=== PATIENT | female | born 1965 | race African-American/Black ===

== ENCOUNTER 2025-04-02 09:55 | Emergency (ER) | payer MEDICAID, SELFPAY ==
--- NOTE | ~2025-04-02 | CT_ITS ---
CLINICAL HISTORY: Epi, LUQ, LLQ tenderness, H O Crohns R O flare-up CT abdomen and pelvis with IV contrast. COMPARISON: None provided. FINDINGS: Minimal atelectasis along the posterior lower lobes. Normal gallbladder. Liver is mildly enlarged with right lobe measuring 18.5 cm. Normal spleen. Normal pancreas. Normal adrenal glands. Symmetric renal enhancement. No hydronephrosis. Suture material present along the ascending colon. No bowel obstruction. Moderate distal colonic diverticulosis without evidence of diverticulitis. Mild thickening of the mucosa of multiple loops of small bowel within the left hemiabdomen. No mesenteric or retroperitoneal lymphadenopathy. Normal abdominal aorta. Normal appearance of the urinary bladder. No adnexal mass. No acute fracture or suspicious bone lesion. IMPRESSION: 1. Mild thickening of the mucosa of multiple loops of small bowel can be seen with an enteritis. No bowel obstruction. 2. Colonic diverticulosis without evidence of diverticulitis. This document has been electronically signed by: Kuldip Jim MD on 04/02/2025 16:51:58
--- NOTE | 2025-04-02 09:57 | ECG_ITS ---
Test Reason : CHEST PAIN Blood Pressure : */* mmHG Vent. Rate : 85 BPM Atrial Rate : 85 BPM P-R Int : 194 ms QRS Dur : 72 ms QT Int : 402 ms P-R-T Axes : 54 -27 24 degrees QTcB Int : 478 ms Normal sinus rhythm Normal ECG When compared with ECG of 22-Mar-2012 21:54, Vent. rate has increased by 37 bpm QRS axis Shifted left Referred By: Generic ED Physician Electronically Signed By: Robert Cruz
[2025-04-02 10:15] VITALS: BP 110/67; PULSE 70; RESP 16; TEMP 36.7; O2SAT 98
--- OUTSIDE RECORDS SUMMARY | 2025-04-02 10:48 | XMS_ITS | Clinical Summary ---
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 Name Role Phone Unavailable Primary Care Provider Unavailabl e Social History Tobacco Use Types Packs/Day Years Used Date Smoking Tobacco: Never Assessed Comments Unknown Sex and Gender Information Value Date Recorded Sex Assigned at Not on file Legal Sex Female 6:38 PM EST Gender Identity Not on file Sexual Orientation Not on file Plan of Treatment Health Maintenance Due Date Last Done Comments Breast Cancer Screening 1967 DTaP,Tdap,and Td Vaccines (1 - Tdap) 1986 Hepatitis B Vaccines (1 of 3 - 19+ 3-dose series) 1986 Cervical Cancer Screening: P ap Smear 02/07/1988 Pneumococcal Vaccine: 50+ Ye ars (1 of 1 - PCV) 2017 Zoster Vaccines (1 of 2) 2017 Colorectal Cancer Screening: Colonoscopy 06/08/2022 HIV Screening 06/08/2022 Hepatitis C Screening 06/08/2022 Social Influencers of Health Screening 06/08/2022 Depression Screening 07/07/2024 COVID-19 Vaccine (1 - 2023-2 5 season) 2025 Influenza Vaccine (#1) 2025 HIB Vaccines Aged Out No longer eligi ble based on patient's age to complete this topic HPV Vaccines Aged Out No longer eligi ble based on patient's age to complete this topic Hepatitis A Vaccines Aged Out No long er eligible based on patient's age to complete this topic IPV Vaccines Aged Out No longer eligi ble based on patient's age to complete this topic MMR Vaccines Aged Out No longer eligi ble based on patient's age to complete this topic Meningococcal ACWY Vaccine Aged Out N o longer eligible based on patient's age to complete this topic Meningococcal B Vaccine Aged Out No l onger eligible based on patient's age to complete this topic RSV Immunization Patients Un rosalva 20 months Aged Out No longer eligible b ased on patient's age to complete this topic Varicella Vaccines Aged Out No longer eligible based on patient's age to complete this topic
--- OUTSIDE RECORDS SUMMARY | 2025-04-02 10:48 | XMS_ITS | Clinical Summary ---
Author Organization [employer] 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 Name Role Phone Unavailable Primary Care Provider Unavailabl e Encounters Date Type Department Care Team Description 01/25/2025 Population Health Risk Score [facility] ([facility]) Department [address] [place] [address] Provider, Population Health Generic from Last 3 Months Social History Tobacco Use Types Packs/Day Years Used Date Smoking Tobacco: Never Assessed Comments Unknown Sex and Gender Information Value Date Recorded Sex Assigned at Not on file Legal Sex Female 9:21 PM EDT Gender Identity Not on file Sexual Orientation Not on file Plan of Treatment Health Maintenance Due Date Last Done Comments CT Colonography 1967 Colonoscopy 1967 Colorectal Cancer Screening 1967 Depression Screening 1967 FIT DNA/Cologuard 1967 FIT 1967 FOBT 1967 HIV Screening 1967 SDOH Screening 1967 Sigmoidoscopy 1967 Disability Screening 1967 Alcohol/Substance Use Screening 1979 Tobacco Screening 1979 Hepatitis C Screening 1985 DTaP/Tdap/Td Vaccines (1 - Tdap) 1986 Hepatitis B Vaccines (1 of 3 - 19+ 3-dose series) 1986 Pap Smear 02/07/1988 Cervical Cancer Screening 1997 HPV/Cotest 1997 Mammogram 2007 Pneumococcal Vaccine: 50+ Ye ars (1 of 1 - PCV) 2017 Zoster Vaccines (1 of 2) 2017 COVID-19 Vaccine ( - 2023-2 5 season) 2025 Influenza Vaccine (#1) 2025 RSV Patients and Pa tients Aged 60 years or older (1 - 1-dose 75+ series) 2042 HIB Vaccines Aged Out No longer eligi [...] patient's age to complete this topic Meningococcal Vaccine Aged Out No jailene almaz eligible based on patient's age to complete this topic RSV under 20 months Aged Out No longe r eligible based on patient's age to complete this topic Rotavirus Vaccines Aged Out No longer eligible based on patient's age to complete this topic
[2025-04-02 11:25] LABS: Hemoglobin 11.9 g/dl (12.0-16.0); PLT CLUMP 1; SCAN SMEAR FLAG 1
[2025-04-02 11:27] LABS: Hematocrit 33.7 % (37.0-47.0); Imm Gran Abs Auto 0.02 X10*3/uL (0.00-0.03); Imm Gran Pct Auto 0.3 % (0.0-0.4); Lymphocytes Absolute Auto 2.3 X10*3/uL (1.2-4.9); MANUAL DIFF FLAG SCAN; Mean Corpuscular HGB Conc 35.3 g/dl (31.0-35.0); Mean Corpuscular Hemoglobin 29.1 pg (27.0-33.0); Mean Corpuscular Volume 82.4 fL (80.0-98.0); NRBC Abs Auto 0.020 X10*3/uL (0.0-0.012); NRBC Pct Auto 0.3 /100WBC (0.0-0.2); Red Blood Count 4.09 X10*6/uL (4.20-5.50)
[2025-04-02 11:28] LABS: Alanine Aminotransferase 14 U/L (0-31); Albumin Level 4.0 g/dL (3.5-5.0); Alkaline Phosphatase 99 U/L (39-117); Anion Gap 12 (12-20); Aspartate Amino Transferase 23 U/L (5-31); Blood Urea Nitrogen 9 mg/dL (9-16); Calcium 9.1 mg/dL (8.4-10.2); Carbon Dioxide 22 mmol/L (22-29); Chloride 111 mmol/L (96-108); Creatinine Clr Calc Pharmacy 64.4; Estimated Glomerular Filt Rate 59; Lipase 12 U/L (8-78); Potassium 3.8 mmol/L (3.3-5.1); Sodium 141 mmol/L (135-145); Total Protein 6.5 g/dL (6.5-8.0)
[2025-04-02 11:31] LABS: White Blood Count 5.7 X10*3/uL (4.8-10.8)
[2025-04-02 11:40] LABS: Troponin-I High Sensitivity < 2.7 ng/L (<3.5-17.0)
--- NOTE | 2025-04-02 11:42 | ED.ABDPAIN ---
HPI - Abdominal Pain General Chief Complaint: Abdominal Pain Stated Complaint: chest pain Time Seen by Provider: 04/02/25 11:42 Source: patient Mode of arrival: ambulatory Limitations: no limitations History of Present Illness ED Provider: Dr. Shaun Mendoza HPI narrative: 60-year-old female with a history of Crohn's disease requiring partial colectomy 30 years prior, depression who presents emergency department for evaluation of intermittent epigastric and left-sided abdominal pain times 2-3 weeks and 20 lb weight loss over 8 months. Patient states she has been getting intermittent abdominal pain 2 to 3 times a week. She states the pain is a pressure-like pain and is 10/10 at its worse in his currently 10/10 in the emergency department. She states the pain feels similar to her Crohn's disease pain. Patient states she has not had a flare-up in over 30 years. She states she gets occasional diarrhea once or twice a month. She denied fever, chills, chest pain, shortness of breath. She has had occasional nausea and occasional vomiting. She has not noticed any bloody stools but has noted black stools. Related Data Previous Rx's ?Medication ?Instructions ?Recorded morphine 15 mg immediate release 15 mg PO Q6H PRN pain #14 tabs 04/02/25 tablet omeprazole 20 mg capsule,delayed 20 mg PO DAILY 30 days #30 caps 04/02/25 release prednisone 10 mg tablet 10 mg PO DIRECTED #40 tabs 04/02/25 Allergies Allergy/AdvReac Type Severity Reaction Status Date / Time ibuprofen (IBUPROFEN) Allergy Unknown HIVES Verified 04/02/25 10:19 Penicillins (PENICILLINS) Allergy Unknown DIFFICULTY Verified 04/02/25 10:19 BREATHING Review of Systems Review of Systems Yes all other systems are reviewed and are negative [facility] Past Medical History [facility] Narrative: Social history: Patient denies tobacco and alcohol use. She does smoke marijuana multiple times daily. Social History Social History Smoked in Last 30 Days: No Use of substances other than those prescribed or required for medical reasons: No Advance Directives: No Advance Directives Information Provided: No Physical Exam ED Vital Signs: Vital Signs - 24 hr 04/02/25 10:15 04/02/25 12:10 04/02/25 14:00 Temperature 98.1 F 97.8 F 97.4 F Pulse Rate 70 72 57 Respiratory Rate 16 16 16 Blood Pressure 110/67 134/55 L 138/60 Pulse Oximetry 98 99 98 Oxygen Delivery Method Room Air Room Air Room Air 04/02/25 16:04 Temperature 97.4 F Pulse Rate 59 Respiratory Rate 16 Blood Pressure 133/64 Pulse Oximetry 99 Oxygen Delivery Method Room Air BMI result Body Mass Index 30.0 Vital signs were normal Exam: General: Awake, alert in no distress Head: Normocephalic, atraumatic EENT: PERRL, sclera and conjunctiva are normal, mouth with no erythema or exudates Neck: Supple, no adenopathy Lung: breath sounds symmetric, no wheezing, no rales and no rhonchi Chest: symmetric movement, nontender Heart: regular rate and rhythm, normal S1, S2 no murmurs or rubs Abdomen: soft, moderate epigastric tenderness, mild to moderate left upper quadrant tenderness, moderate right lower quadrant tenderness, nondistended, normal bowel sounds Back: no vertebral tenderness, no CVAT Extremities: no deformities, moves all extremities symmetrically, no edema Neuro: Awake, alert, oriented, normal speech, cranial nerves 2-12 intact, moves all extremities symmetrically Psych: Pleasant, cooperative Medical Decision Making Medical Decision Making MDM Narrative: 60-year-old female with a history of Crohn's disease requiring partial colectomy 30 years prior, depression who presents emergency department for evaluation of intermittent epigastric and left-sided abdominal pain times 2-3 weeks and 20 lb weight loss over 8 months. Patient states she has been getting intermittent abdominal pain 2 to 3 times a week. She states the pain is a pressure-like pain and is 10/10 at its worse in his currently 10/10 in the emergency department. She states the pain feels similar to her Crohn's disease pain. Patient states she has not had a flare-up in over 30 years. She states she gets occasional diarrhea once or twice a month. She denied fever, chills, chest pain, shortness of breath. She has had occasional nausea and occasional vomiting. She has not noticed any bloody stools but has noted black stools. Exam revealed epigastric tenderness, left upper and left lower quadrant tenderness. Differential diagnosis: ?Includes but is not limited to gastritis, diverticulitis, Crohn's flare-up, pancreatitis, anemia, electrolyte abnormalities Course: 16:08 My independent interpretation patient's laboratory evaluation as follows: WBC normal 5700. Normocytic anemia with an H&H of 11.9 and 33.7. ESR was normal at 12. Of chloride elevated 110. Troponin below detectable limits. Lipase was normal. LFTs were normal. CRP was normal. Patient was treated with morphine 4 mg IV, Zofran 4 mg IV and normal saline x1 L with improvement of her pain. 17:04 CT of the abdomen pelvis with IV contrast did reveal mild thickening of loops of small bowel, this could possibly be caused by a flare-up of her Crohn's disease however her inflammatory markers were not elevated. I did discuss this with the patient and the patient's . The patient will be started on prednisone 40 mg once a day for 5 days then taper by 1 pill every 2 days. Radiologist also noted borderline enlargement of the patient's liver. I told the patient that I want her to follow up with our school library media program director on-call, Dr. Hamlin for re-evaluation. Patient also had significant epigastric tenderness I am concerned that you may have gastritis. The patient was started on Prilosec 20 mg once a day for 1 month. Patient was advised to take Tylenol for pain and for pain not relieved by Tylenol she was prescribed morphine. She was given printed and verbal instructions and discharged home in the care of her . Differential Diagnosis Differential Diagnoses: The differential diagnosis associated with the presentation includes (See above) Admission/Observation Consideration of admission/observation: Escalation of care including admission/observation considered (Yes) Lab Data MDM Lab Attestation statement: I reviewed the patient's lab results. 04/02/25 11:03 04/02/25 11:03 Labs: Lab Results 04/02/25 04/02/25 04/02/25 Range/Units 11:03 13:09 13:52 WBC 5.7 (4.8-10.8) X10*3/uL RBC 4.09 L (4.20-5.50) X10*6/uL Hgb 11.9 L (12.0-16.0) g/dl Hct 33.7 L (37.0-47.0) % MCV 82.4 (80.0-98.0) fL MCH 29.1 (27.0-33.0) pg MCHC 35.3 H (31.0-35.0) g/dl RDW 14.0 (11.0-16.0) % Plt Count 179 (160-400) X10*3/uL MPV 11.2 (9.4-12.3) fL Immature Gran % (Auto) 0.3 (0.0-0.4) % Neut % (Auto) 51.6 (45-73) % Lymph % (Auto) 39.9 (20-40) % Emanuel % (Auto) 7.0 (2-11) % Eos % (Auto) 0.9 (0-4) % Baso % (Auto) 0.3 (0-2) % Lymph # (Auto) 2.3 (1.2-4.9) X10*3/uL Emanuel # (Auto) 0.4 (0.1-1.2) X10*3/uL Eos # (Auto) 0.1 (0.0-0.4) X10*3/uL Baso # (Auto) 0.0 (0.0-0.2) X10*3/uL Abs Immat Gran (auto) 0.02 (0.00-0.03) X10*3/uL Absolute Neuts (auto) 3.0 (2.0-8.3) x10*3/uL Absolute Nucleated RBC 0.020 H (0.0-0.012) X10*3/uL Nucleated RBC % (auto) 0.3 H (0.0-0.2) /100WBC Smear Tech's Comments VERIFIED ESR 12 (0-20) MM/HR Sodium 141 (135-145) mmol/L Potassium 3.8 (3.3-5.1) mmol/L Chloride 111 H (96-108) mmol/L Carbon Dioxide 22 (22-29) mmol/L Anion Gap 12 (12-20) BUN 9 (9-16) mg/dL Creatinine 0.97 (0.5-1.4) mg/dL Estim Creat Clear Calc 64.4 Estimated GFR 59 Random Glucose 90 (60-115) mg/dL Calcium 9.1 (8.4-10.2) mg/dL Total Bilirubin 0.3 (0.0-1.0) mg/dL AST 23 (5-31) U/L ALT 14 (0-31) U/L Alkaline Phosphatase 99 (39-117) U/L Troponin I High Sens < 2.7 (<3.5-17.0) ng/L C-Reactive Protein 0.14 (< or = 0.50) mg/dL Total Protein 6.5 (6.5-8.0) g/dL Albumin 4.0 (3.5-5.0) g/dL Lipase 12 (8-78) U/L Urine Color Yellow Urine Appearance Clear Urine pH 7.0 (5.0-9.0) Ur Specific [place] 1.015 (1.005-1.025) Urine Protein Negative (Neg-Trace) mg/dL Urine Glucose (UA) Negative (Negative) mg/dL Urine Ketones Negative (Negative) mg/dL Urine Blood Negative (Negative) Urine Nitrite Negative (Negative) Ur Leukocyte Esterase Negative (Negative) Independent Interpretation I performed an independent interpretation of an: EKG Interpretation: My independent interpretation patient's EKG done on 04/02/2025 at 10:01 hours is as follows: Normal sinus rhythm with a rate of 85, normal PA, QRS and QTC interval, no ST segment elevation, no ST segment depression, no significant T-wave abnormalities, no PACs, no PVCs. Compared to EKG dated 03/22/2021 at 21:54 hours, there is no significant change. Radiology Impression Discussion of test interpretation with radiology: I have reviewed the radiologist's reading. Radiologist Impression: CT abdomen and pelvis with IV contrast. COMPARISON: None provided. FINDINGS: Minimal atelectasis along the posterior lower lobes. Normal gallbladder. Liver is mildly enlarged with right lobe measuring 18.5 cm. Normal spleen. Normal pancreas. Normal adrenal glands. Symmetric renal enhancement. No hydronephrosis. Suture material present along the ascending colon. No bowel obstruction. Moderate distal colonic diverticulosis without evidence of diverticulitis. Mild thickening of the mucosa of multiple loops of small bowel within the left hemiabdomen. No mesenteric or retroperitoneal lymphadenopathy. Normal abdominal aorta. Normal appearance of the urinary bladder. No adnexal mass. No acute fracture or suspicious bone lesion. IMPRESSION: 1. Mild thickening of the mucosa of multiple loops of small bowel can be seen with an enteritis. No bowel obstruction. 2. Colonic diverticulosis without evidence of diverticulitis. This document has been electronically signed by: Kuldip Jim MD on 04/02/2025 16:51:58 Independent Historian Clinical information obtained from an independent historian. History obtained from or confirmed by: Spouse Prescription Management I considered prescription management with: Pain Medication (Morphine) and Other (Proton pump inhibitor: Prilosec) Chronic Conditions Patient?s care impacted by: Other (Crohn's disease) Medications Administered Discontinued Medications Generic Name Dose Route Start Last Admin Trade Name Haleigh PRN Reason Stop Dose Admin Sodium Chloride 1,000 mls @ 999 mls/hr 04/02/25 11:59 04/02/25 16:36 Ns IV 04/02/25 12:59 Infused .Q1H1M STA Infusion Iohexol 100 ml 04/02/25 13:26 04/02/25 13:28 Iohexol 350 Mg/Ml 100 Ml Infus..Btl IV 04/02/25 13:27 85 ml ONCE ONE Administration Morphine Sulfate 4 mg 04/02/25 11:59 04/02/25 13:03 Morphine Sulfate 4 Mg/Ml Cartridge IVPUSH 04/02/25 12:00 4 mg ONCE STA Administration Protocol Morphine Sulfate 4 mg 04/02/25 16:26 04/02/25 16:36 Morphine Sulfate 4 Mg/Ml Cartridge IVPUSH 04/02/25 16:27 4 mg ONCE STA Administration Protocol Ondansetron HCl 4 mg 04/02/25 11:59 04/02/25 13:03 Ondansetron Hcl 4 Mg/2 Ml Vial IVPUSH 04/02/25 12:00 4 mg ONCE ONE Administration Discharge Plan Discharge Clinical Impression: Abdominal pain, Crohn's disease Patient Disposition: Home, Self-Care Instructions: Gastritis (ED) Additional Instructions: Your CAT scan reading in his below. The radiologist did mild thickening of wall of your small bowel which could be consistent with Crohn's disease however your inflammatory markers (ESR and CRP were not elevated. Take prednisone 10 mg pills, 4 pills once a day for 7 days then decrease by 1 pill every 2 days until you complete the entire prescription. This should treat the inflammation from Crohn's disease. While you ?are taking prednisone, do not take any NSAIDs (Motrin, Advil, ibuprofen, Aleve, naproxen). The radiologist also noted that your liver was mildly enlarged but your liver tests were normal. I am also concerned that you might have inflammation of your stomach (gastritis) Take Prilosec (omeprazole) 20 mg pills, 1 pill once a day for 1 month. ?This medication shuts off your acid production and lets the inflammation in your stomach and esophagus heal. Take Tylenol (acetaminophen) 2 pills every 6 hours as needed for pain. For pain not relieved by prednisone or Tylenol take morphine 15 mg pills, 1 pill every 6 hours as needed for pain. This medication will make you sleepy, do not drive or work while taking this medication. Morphine is a narcotic medication and can be addicting. If you are concerned about addiction you can ask the pharmacist for less pills or do not get this prescription filled. Follow-up with your doctor in 2 days. Please return to the emergency department if your symptoms get worse or if you develop any symptoms that are concerning to you. I also want you to follow-up with our on-call school library media program director, Dr. Hamlin for evaluation of your slightly enlarged liver and for possible recurrence of your Crohn's disease. Call their office on Friday to try to get a follow up appointment. CT abdomen and pelvis with IV contrast. COMPARISON: None provided. FINDINGS: Minimal atelectasis along the posterior lower lobes. Normal gallbladder. Liver is mildly enlarged with right lobe measuring 18.5 cm. Normal spleen. Normal pancreas. Normal adrenal glands. Symmetric renal enhancement. No hydronephrosis. Suture material present along the ascending colon. No bowel obstruction. Moderate distal colonic diverticulosis without evidence of diverticulitis. Mild thickening of the mucosa of multiple loops of small bowel within the left hemiabdomen. No mesenteric or retroperitoneal lymphadenopathy. Normal abdominal aorta. Normal appearance of the urinary bladder. No adnexal mass. No acute fracture or suspicious bone lesion. IMPRESSION: 1. Mild thickening of the mucosa of multiple loops of small bowel can be seen with an enteritis. No bowel obstruction. 2. Colonic diverticulosis without evidence of diverticulitis. This document has been electronically signed by: Kuldip Jim MD on 04/02/2025 16:51:58 Dictated By: Kuldip Jim MD Prescriptions: New prednisone 10 mg tablet 10 mg PO DIRECTED Qty: 40 0RF Rx Instructions: Day 1-7, 4pills. Day 8-9, 3 pills. Day 10-11, 2 pills. Day 12-13, 1 pill morphine 15 mg tablet 15 mg PO Q6H PRN (Reason: pain) Qty: 14 0RF Rx Instructions: Partial Fill upon patient request. omeprazole 20 mg capsule,delayed release(/EC) 20 mg PO DAILY 30 Days Qty: 30 0RF Referrals: Ngoc Hamlin MD [Physician, Gastroenterology] Referral Note: Abdominal pain similar to Crohn's flare-up, CT Mild thickening of the mucosa of multiple loops of small bowel can be seen with an enteritis. No bowel obstruction. CRP and ESR were not elevated. Also liver is mildly enlarged with normal LFTs. Print Language: Indonesian
[2025-04-02 11:44] LABS: Platelet Count 179 X10*3/uL (160-400)
[2025-04-02 12:10] VITALS: BP 134/55; PULSE 72; RESP 16; TEMP 36.6; O2SAT 99
[2025-04-02] MEDS: iohexoL 350 MG/ML 100 ML INFUS..BTL IV (13:28)
--- NOTE | 2025-04-02 13:30 | PC.NURSE ---
Pt encouraged to keep RUE straight to encourage IV infusion completion. Resting comfortably in bed, care ongoing.
[2025-04-02 13:58] LABS: Appearance Urine Clear; Glucose Urine UA Negative (Negative); PH 7.0 (5.0-9.0); Specific Gravity - Urine 1.015 (1.005-1.025)
[2025-04-02 14:00] VITALS: BP 138/60; PULSE 57; RESP 16; TEMP 36.3; O2SAT 98
[2025-04-02 16:04] VITALS: BP 133/64; PULSE 59; RESP 16; TEMP 36.3; O2SAT 99
[2025-04-02 17:24] VITALS: BP 138/66; PULSE 52; RESP 15; TEMP 36.3; O2SAT 99
== END 2025-04-02 17:34 | disposition home or self-care (01) ==
PROVIDERS: Emergency Provider Emergency Medicine Emergency Medical Services
DX: K50.90 Crohn's disease, unspecified, without complications (principal); R07.89 Other chest pain; R10.2 Pelvic and perineal pain; R11.2 Nausea with vomiting, unspecified; Z79.899 Other long term (current) drug therapy
CPT/HCPCS: 36415; 74177; 80053; 81003; 83690; 84484; 85025; 85652; 86140; 93005; 96361; 96374; 96375; 96376; 99285; J2270; J2405; Q9967

== ENCOUNTER → 2025-04-02 09:57 | Outpatient (BNV) | payer MEDICAID, SELFPAY | PROVIDERS: Emergency Provider Emergency Medicine Emergency Medical Services; Visit Provider Internal Medicine Cardiovascular Disease | DX: R07.9 Chest pain, unspecified (principal) | CPT/HCPCS: 93010 ==

== ENCOUNTER → 2025-04-02 11:59 | Outpatient (BNV) | payer MEDICAID, SELFPAY | PROVIDERS: Emergency Provider Emergency Medicine Emergency Medical Services; Visit Provider Radiology Diagnostic Radiology | DX: K57.30 Diverticulosis of large intestine without perforation or abscess without bleeding (principal) | CPT/HCPCS: 74177 ==

== ENCOUNTER 2025-04-13 15:39 | Emergency (ER) | payer MEDICAID, SELFPAY ==
--- NOTE | ~2025-04-13 | CT_ITS ---
CLINICAL HISTORY: worsening L sided pain CT abdomen and pelvis with contrast Comparison: CT/SR - CT ABDOMEN PELVIS W IV CON - 04/02/25 13:10 EDT Findings: Increased bibasilar diffuse ground-glass opacities compared to 04/02/2025 CT.No focal consolidations. No pleural effusions. Visualized heart is unremarkable. The gallbladder and solid organs are within normal limits. No renal stones. Status post right hemicolectomy. No bowel obstruction, pneumoperitoneum, or pneumatosis. Compared to 04/02/2025 CT, there is diffuse wall thickening of the descending and sigmoid colon, concerning for infectious or inflammatory colitis. Extensive colonic diverticulosis without evidence of diverticulitis. There is slightly more prominent gastroduodenal wall thickening, which can be seen in gastroenteritis. Pelvic contents unremarkable. The bones are intact. IMPRESSION: Findings concerning for infectious or inflammatory colitis involving the descending and sigmoid colon and possible gastroenteritis. Both more prominent compared to 04/02/2025 CT. This document has been electronically signed by: Sameer Ma MD on 04/13/2025 23:08:34
--- NOTE | 2025-04-13 15:41 | ECG_ITS ---
Test Reason : CP Blood Pressure : */* mmHG Vent. Rate : 75 BPM Atrial Rate : 75 BPM P-R Int : 162 ms QRS Dur : 72 ms QT Int : 398 ms P-R-T Axes : 59 -7 19 degrees QTcB Int : 444 ms Normal sinus rhythm Normal ECG When compared with ECG of 02-Apr-2025 10:01, Nonspecific T wave abnormality now evident in Anterior leads Referred By: Generic ED Physician Electronically Signed By: SEGUNDO WOODY MD
[2025-04-13 15:50] VITALS: BP 105/55; PULSE 81; RESP 16; TEMP 37.2; O2SAT 97; BMI 24.6
--- NOTE | 2025-04-13 15:54 | ED.GENADULT ---
HPI - General Adult General Chief complaint: Abdominal Pain Stated complaint: CP Time Seen by Provider: 04/13/25 21:00 History of Present Illness ED Provider: Erica BRIGGS narrative: The patient is a 60-year-old female who reports a history of Crohn's disease. The patient apparently has had a partial colectomy many years ago. The patient states that she has health insurance that does not accepted locally and she has not been seeing doctors for her Crohn's disease for a long time. She has been having left-sided abdominal pain for 2 years that she feels is getting worse. She was in the emergency room 11 days ago on April 02 with similar pain. She was seen here in the emergency room. She had lab testing in his CT scan of the abdomen that was largely unremarkable. She was discharged from the emergency room with a prescription for a prednisone taper and also for morphine sulfate tablets. She was advised to contact the [facility] gastro[facility]ology office for follow up. The patient says that she has been having left-sided pain getting worse over the last 2 years. She reports a history of a partial colectomy decades ago. She says that she did fine until the last 2 years and did not have issues with a Crohn's disease following her surgery. She is not have a regular doctor and has not seen a regular doctor in many years. She says that she has health insurance but that her insurance is not taken by local doctors and therefore he is having trouble finding doctors. When she was seen here 11 days ago she was referred to [facility] oncology but she was not able to get in. The patient indicates that the pain is on her left side, in the left side of her abdomen, and on the left flank. She reports that she has been having black stools. She says that she has been taking Pepto-Bismol. Related Data Previous Rx's ?Medication ?Instructions ?Recorded morphine 15 mg immediate release 15 mg PO Q6H PRN pain #14 tabs 04/02/25 tablet omeprazole 20 mg capsule,delayed 20 mg PO DAILY 30 days #30 caps 04/02/25 release prednisone 10 mg tablet 10 mg PO DIRECTED #40 tabs 04/02/25 acetaminophen 500 mg capsule 1,000 mg (2 x 500 mg) PO Q8H PRN 04/14/25 fever or pain #14 caps ciprofloxacin HCl 500 mg tablet 500 mg PO BID #14 tabs 04/14/25 metronidazole 500 mg tablet 500 mg PO TID 7 days #21 tabs 04/14/25 morphine 15 mg immediate release 15 mg PO Q6H PRN pain #14 tabs 04/14/25 tablet ondansetron 4 mg disintegrating 4 mg PO Q6H PRN nausea and 04/14/25 tablet vomiting #10 tabs prednisone 10 mg tablet 10 mg PO DIRECTED #40 tabs 04/14/25 Allergies Allergy/AdvReac Type Severity Reaction Status Date / Time ibuprofen (IBUPROFEN) Allergy Unknown HIVES Verified 04/13/25 15:53 Penicillins (PENICILLINS) Allergy Unknown DIFFICULTY Verified 04/13/25 15:53 BREATHING Review of Systems Review of Systems: Yes all other systems are reviewed and are negative [facility] Social History Social History Smoked in Last 30 Days: No Use of substances other than those prescribed or required for medical reasons: Yes Substance Use Type: Marijuana Advance Directives: No Advance Directives Information Provided: No Do you have a plan to hurt others: No Plan Physical Exam ED Vital Signs: Vital Signs - 24 hr 04/13/25 15:50 04/13/25 18:12 04/13/25 21:11 Temperature 98.9 F 98.8 F 97.8 F Pulse Rate 81 66 Respiratory Rate 16 16 16 Blood Pressure 105/55 L 150/60 H 111/51 L Pulse Oximetry 97 98 95 Oxygen Delivery Method Room Air Room Air Room Air 04/13/25 22:05 Temperature 97.8 F Pulse Rate 62 Respiratory Rate 16 Blood Pressure 104/52 L Pulse Oximetry 96 Oxygen Delivery Method Room Air BMI result Body Mass Index 24.6 Const Other: The patient is awake and alert and so she is very uncomfortable. Orientation/consciousness: patient oriented x3 HENMT Other: Face is symmetrical, tongue is midline, mucous membranes moist. Eyes Other: Pupils are round equal, conjunctivae are clear, extraocular movements intact Neck Neck: Yes normal visual inspection and Yes full ROM Resp Effort & Inspection: normal respiratory effort Auscultation: clear to auscultation bilaterally Cardio Rate: regular rate Rhythm: regular rhythm Heart sounds: S1 normal heart sound present and S2 normal heart sound present GI Other: There is significant left-sided of the tenderness. Skin Other: The skin is dry and unremarkable Neuro General: patient oriented x3, tone normal, moves all extremities, no focal motor deficits and CN's II-XI intact bilaterally Extrem Other: There is no calf swelling or tenderness. No asymmetry. No peripheral edema. Course Course Course Narrative: This is a rapid medical exam performed by Nan Banks NP: Additional HPI, ROS, PE not included below will be deferred to primary provider. Patient is a 60y/o F with presenting with years of abdominal pain, as well as left upper chest pain. Reports recently having black stool which prompted her to come in. Plan: EKG, labs Medications Administered Discontinued Medications Generic Name Dose Route Start Last Admin Trade Name Haleigh PRN Reason Stop Dose Admin Acetaminophen 975 mg 04/14/25 00:04 04/14/25 00:17 Acetaminophen 325 Mg Tablet PO 04/14/25 00:05 975 mg ONCE ONE Administration Droperidol 1.25 mg 04/13/25 21:09 04/13/25 21:41 Droperidol 5 Mg/2 Ml Vial IVPUSH 04/13/25 21:10 1.25 mg ONCE ONE Administration Sodium Chloride 1,000 mls @ 999 mls/hr 04/13/25 21:15 04/14/25 00:16 Ns IV 04/13/25 22:15 Infused .Q1H1M CHARLES Infusion Iohexol 85 ml 04/13/25 22:22 04/13/25 22:22 Iohexol 350 Mg/Ml 100 Ml Infus..Btl IV 04/13/25 22:23 85 ml ONCE ONE Administration Levofloxacin 500 mg 04/13/25 23:59 04/14/25 00:17 Levofloxacin 500 Mg Tablet PO 04/14/25 00:00 500 mg ONCE ONE Administration Metronidazole 500 mg 04/13/25 23:59 04/14/25 00:17 Metronidazole 500 Mg Tablet PO 04/14/25 00:00 500 mg ONCE ONE Administration Morphine Sulfate 4 mg 04/13/25 21:09 04/13/25 21:41 Morphine Sulfate 4 Mg/Ml Cartridge IVPUSH 04/13/25 21:10 4 mg ONCE ONE Administration Protocol Morphine Sulfate 15 mg 04/14/25 00:04 04/14/25 00:17 Morphine Sulfate Immed Release 15 Mg Tablet PO 04/14/25 00:05 15 mg ONCE ONE Administration Prednisone 40 mg 04/14/25 00:04 04/14/25 00:17 Prednisone 20 Mg Tablet PO 04/14/25 00:05 40 mg ONCE ONE Administration Medical Decision Making Medical Decision Making [facility] Narrative: The patient is a 60-year-old woman who returns to the emergency room after being seen here approximately 11 days ago with a similar complaint. She had presented with abdominal being at her earlier emergency room visit. She had reported that 30 years ago she had had abdominal surgery with a partial colectomy because of Crohn's disease. However the patient has not had any long-term care for Crohn's disease. She tells me that the pain that she has been having is primarily on the left side of her abdomen and it has been present for over a year but worse over the last few weeks. She was seen here 11 days ago and had a CT scan of the abdomen and pelvis that was not terribly remarkable. There was some questionable small-bowel thickening possibly consistent with enteritis. She was started on a prednisone taper and referred to outpatient management. Unfortunate patient has not had primary care doctor in years and has not seen a school counselor in years. This history makes me wonder whether she really has Crohn's disease. In any event she is here again with more less the same complaint and she has been unable to be seen in the outpatient setting. She says that she has an insurance product that is not accepted by many providers in this area. she says that she took the course of prednisone but her pain has returned and is now worse. She also reports that she has been having black stools but she admits to taking a lot of Pepto-Bismol recently. No definite fevers. No vomiting. She seemed fairly tender on the left abdomen and a repeat CT scan was done that shows more definite inflammatory changes in the colon IMPRESSION: Findings concerning for infectious or inflammatory colitis involving the descending and sigmoid colon and possible gastroenteritis. Both more prominent compared to 04/02/2025 CT. the patient was given IV fluids and IV morphine for symptom control. I explained to the patient that on the basis of her CT scan she should probably be on antibiotics as well as steroids. The patient was afebrile in the emergency room. She was not tachycardic. her white blood count was 10.3 with 79% neutrophils. Her CRP was minimally elevated at 0.67. She does not seem septic or toxic. Nevertheless given that she has now returned twice with this abdominal pain and given that she has worsening CT findings, and given that she has no definite plans for follow-up given her lack of established providers, the patient was offered hospitalization. The patient does not wish to be hospitalized. She will therefore be discharged with prescriptions for ciprofloxacin and metronidazole ( she has a penicillin allergy) and she will also be given another taper of prednisone. She is given contact information for Gastroenterology both at this hospital and at [facility]. She was also given contact information for primary care practice is. She should contact her insurance for assistance in finding providers. She should return if worse. Lab Data 04/13/25 16:32 04/13/25 16:32 Labs: Lab Results 04/13/25 04/13/25 Range/Units 16:32 16:33 WBC 10.3 (4.8-10.8) X10*3/uL RBC 4.36 (4.20-5.50) X10*6/uL Hgb 12.5 (12.0-16.0) g/dl Hct 37.3 (37.0-47.0) % MCV 85.6 (80.0-98.0) fL MCH 28.7 (27.0-33.0) pg MCHC 33.5 (31.0-35.0) g/dl RDW 15.6 (11.0-16.0) % Plt Count 249 D (160-400) X10*3/uL MPV 10.0 (9.4-12.3) fL Immature Gran % (Auto) 1.1 H (0.0-0.4) % Neut % (Auto) 78.9 H (45-73) % Lymph % (Auto) 14.3 L (20-40) % [place] % (Auto) 5.4 (2-11) % Eos % (Auto) 0.1 (0-4) % Baso % (Auto) 0.2 (0-2) % Lymph # (Auto) 1.5 (1.2-4.9) X10*3/uL [place] # (Auto) 0.6 (0.1-1.2) X10*3/uL Eos # (Auto) 0.0 (0.0-0.4) X10*3/uL Baso # (Auto) 0.0 (0.0-0.2) X10*3/uL Abs Immat Gran (auto) 0.11 H (0.00-0.03) X10*3/uL Absolute Neuts (auto) 8.2 (2.0-8.3) x10*3/uL Absolute Nucleated RBC 0.000 (0.0-0.012) X10*3/uL Nucleated RBC % (auto) 0.0 (0.0-0.2) /100WBC PT 11.1 (10.9-12.4) SEC INR 1.0 (0.9-1.1) Sodium 142 (135-145) mmol/L Potassium 3.6 (3.3-5.1) mmol/L Chloride 109 H (96-108) mmol/L Carbon Dioxide 25 (22-29) mmol/L Anion Gap 12 (12-20) BUN 14 (9-16) mg/dL Creatinine 1.22 (0.5-1.4) mg/dL Estim Creat Clear Calc 43.4 Estimated GFR 45 Random Glucose 156 H (60-115) mg/dL Calcium 8.8 (8.4-10.2) mg/dL Magnesium 2.0 (1.6-2.6) mg/dL Total Bilirubin 0.2 (0.0-1.0) mg/dL AST 23 (5-31) U/L ALT 45 H (0-31) U/L Alkaline Phosphatase 101 (39-117) U/L Troponin I High Sens < 2.7 (<3.5-17.0) ng/L C-Reactive Protein 0.67 H (< or = 0.50) mg/dL Total Protein 6.7 (6.5-8.0) g/dL Albumin 4.1 (3.5-5.0) g/dL Lipase 12 (8-78) U/L Urine Color Yellow Urine Appearance Clear Urine pH 5.5 (5.0-9.0) Ur Specific [place] 1.015 (1.005-1.025) Urine Protein Negative (Neg-Trace) mg/dL Urine Glucose (UA) Negative (Negative) mg/dL Urine Ketones Negative (Negative) mg/dL Urine Blood Negative (Negative) Urine Nitrite Negative (Negative) Ur Leukocyte Esterase Small (1+) H (Negative) Urine RBC 0-2 (0-2) /HPF Urine WBC 11-20 H (0-5) /HPF Ur Squamous Epith Cells 6-10 (0-2) /HPF Urine Bacteria None Seen (None Seen) Hyaline Casts 3-5 (0-2) /LPF Urine Opiates Screen POSITIVE H (Not Detect) Ur Buprenorphine Scrn Not Detected (Not Detect) ng/mL Ur Oxycodone Screen Not Detected (Not Detect) ng/mL Urine Methadone Screen Not Detected (Not Detect) ng/mL Urine Fentanyl Screen Not Detected (Not Detect) Ur Barbiturates Screen Not Detected (Not Detect) Ur Phencyclidine Scrn Not Detected (Not Detect) Ur Amphetamines Screen Not Detected (Not Detect) U Benzodiazepines Scrn Not Detected (Not Detect) Urine Cocaine Screen Not Detected (Not Detect) U Marijuana (THC) Screen POSITIVE H (Not Detect) Ethyl Alcohol < 10 mg/dL Discharge Plan Discharge Clinical Impression: Colitis Patient Disposition: Home, Self-Care Additional Instructions: Your CAT scan today shows some inflammation of your colon. We call this inflammation colitis. I do not know if this colitis is the result of Crohn's disease or if this is some kind of an infection. You has been started on a course of antibiotics (ciprofloxacin and metronidazole) in case there was an infectious component. Please take the antibiotics as prescribed. Prednisone as an anti-inflammatory medication (a steroid medication). Please take this 2nd course of prednisone. Prescriptions has been sent for acetaminophen and morphine tablets to your pharmacy as well. Please use these as needed for pain. Please try to use the morphine as little as possible. A prescription for the medication ondansetron (also known as Zofran) has been sent to the pharmacy for nausea. Most importantly please continue your efforts to try to get a primary care doctor and also a school counselor. Please contact your insurance company tomorrow to see if they can assist you in finding out which doctor offices take your insurance. You have the contact information for the gastroenterology office here at [facility] and also at [facility]. There is a clinic in [place] called the [facility] that I believe takes a lot of insurances. Please call them as a possible primary care office. Also you has been provided with the contact information for both [facility] and [facility] primary care offices. Please call these as well as needed. Return to the emergency room if significantly worse. Prescriptions: New ciprofloxacin HCl 500 mg tablet 500 mg PO BID Qty: 14 0RF prednisone 10 mg tablet 10 mg PO DIRECTED Qty: 40 0RF Rx Instructions: Take 4 tablets daily for 4 days, then 3 tablets daily for 4 days, then 2 tablets daily for 4 days, then 1 tablet daily for 4 days. metronidazole 500 mg tablet 500 mg PO TID 7 Days Qty: 21 0RF morphine 15 mg tablet 15 mg PO Q6H PRN (Reason: pain) Qty: 14 0RF Rx Instructions: Partial Fill upon patient request. ondansetron 4 mg tablet,disintegrating 4 mg PO Q6H PRN (Reason: nausea and vomiting) Qty: 10 0RF acetaminophen 500 mg capsule 1,000 mg PO Q8H PRN (Reason: fever or pain) Qty: 14 0RF No Action prednisone 10 mg tablet 10 mg PO DIRECTED Qty: 40 0RF Rx Instructions: Day 1-7, 4pills. Day 8-9, 3 pills. Day 10-11, 2 pills. Day 12-13, 1 pill morphine 15 mg tablet 15 mg PO Q6H PRN (Reason: pain) Qty: 14 0RF Rx Instructions: Partial Fill upon patient request. omeprazole 20 mg capsule,delayed release(DR/EC) 20 mg PO DAILY 30 Days Qty: 30 0RF Referrals: [facility] [Provider Group, Family Practice] [facility] [Provider Group] [facility] [Provider Group] [facility] [Provider Group] [facility] [Provider Group, Gastroenterology] Clinical Impression: Colitis [facility] Primary Care, Nik [Provider Group, Internal Medicine] [facility] Primary Care, 10 [Provider Group, Primary Care] [facility] Gastroenterology [Outside] Interventions: ED Discharge Assessment Last Done: 04/14/25 00:23 Discharge Date/Time: 04/14/25 00:23 Print Language: Bulgarian
[2025-04-13 16:39] LABS: MANUAL DIFF FLAG NO
[2025-04-13 16:50] LABS: Appearance Urine Clear; Glucose Urine UA Negative (Negative); PH 5.5 (5.0-9.0); Specific Gravity - Urine 1.015 (1.005-1.025); UMIC TRIGGER UACC YES
[2025-04-13 16:55] LABS: INTERNATIONAL NORM RATIO 1.0 (0.9-1.1); Prothrombin Time 11.1 SEC (10.9-12.4)
[2025-04-13 17:00] LABS: Hematocrit 37.3 % (37.0-47.0); Hemoglobin 12.5 g/dl (12.0-16.0); Imm Gran Abs Auto 0.11 X10*3/uL (0.00-0.03); Imm Gran Pct Auto 1.1 % (0.0-0.4); Lymphocytes Absolute Auto 1.5 X10*3/uL (1.2-4.9); Mean Corpuscular HGB Conc 33.5 g/dl (31.0-35.0); Mean Corpuscular Hemoglobin 28.7 pg (27.0-33.0); Mean Corpuscular Volume 85.6 fL (80.0-98.0); NRBC Abs Auto 0.000 X10*3/uL (0.0-0.012); NRBC Pct Auto 0.0 /100WBC (0.0-0.2); Platelet Count 249 X10*3/uL (160-400); Red Blood Count 4.36 X10*6/uL (4.20-5.50); White Blood Count 10.3 X10*3/uL (4.8-10.8)
[2025-04-13 17:02] LABS: Alanine Aminotransferase 45 U/L (0-31); Albumin Level 4.1 g/dL (3.5-5.0); Alkaline Phosphatase 101 U/L (39-117); Anion Gap 12 (12-20); Aspartate Amino Transferase 23 U/L (5-31); Blood Urea Nitrogen 14 mg/dL (9-16); Calcium 8.8 mg/dL (8.4-10.2); Carbon Dioxide 25 mmol/L (22-29); Chloride 109 mmol/L (96-108); Creatinine Clr Calc Pharmacy 43.4; Estimated Glomerular Filt Rate 45; Lipase 12 U/L (8-78); Magnesium 2.0 mg/dL (1.6-2.6); Potassium 3.6 mmol/L (3.3-5.1); Sodium 142 mmol/L (135-145); Total Protein 6.7 g/dL (6.5-8.0)
[2025-04-13 17:11] LABS: Troponin-I High Sensitivity < 2.7 ng/L (<3.5-17.0)
[2025-04-13 17:29] LABS: UACC Culture Trigger YES
[2025-04-13 18:12] VITALS: BP 150/60; RESP 16; TEMP 37.1; O2SAT 98
[2025-04-13 21:11] VITALS: BP 111/51; PULSE 66; RESP 16; TEMP 36.6; O2SAT 95
[2025-04-13 22:05] VITALS: BP 104/52; PULSE 62; RESP 16; TEMP 36.6; O2SAT 96
[2025-04-13] MEDS: iohexoL 350 MG/ML 100 ML INFUS..BTL 85 ML IV (22:22)
[2025-04-13 22:26] LABS: Cannabinoid Screen Urine POSITIVE (Not Detect)
[2025-04-14 00:15] VITALS: BP 155/69; PULSE 50; RESP 16; TEMP 36.8; O2SAT 98
[2025-04-14] MEDS: Morphine Sulfate Immed Release 15 MG TABLET PO (00:17)
[2025-04-14 00:23] VITALS: BP 155/69; PULSE 50; RESP 16; TEMP 36.8; O2SAT 98
== END 2025-04-14 00:23 | disposition home or self-care (01) ==
PROVIDERS: Registered Nurse Emergency; Emergency Provider Emergency Medicine
DX: K52.9 Noninfective gastroenteritis and colitis, unspecified (principal); R07.9 Chest pain, unspecified; Z90.49 Acquired absence of other specified parts of digestive tract; Z88.0 Allergy status to penicillin; Z88.6 Allergy status to analgesic agent
CPT/HCPCS: 36415; 74177; 80053; 80307; 81001; 81003; 83690; 83735; 84484; 85025; 85610; 86140; 87086; 93005; 96361; 96374; 96375; 99285; J1790; J2270; Q9967

== ENCOUNTER → 2025-04-13 15:41 | Outpatient (BNV) | payer MEDICAID, SELFPAY | PROVIDERS: Visit Provider Internal Medicine Cardiovascular Disease | DX: R07.9 Chest pain, unspecified (principal) | CPT/HCPCS: 93010 ==

== ENCOUNTER → 2025-04-13 22:03 | Outpatient (BNV) | payer MEDICAID, SELFPAY | PROVIDERS: Emergency Provider Emergency Medicine; Visit Provider Student in an Organized Health Care Education/Training Program | DX: R10.9 Unspecified abdominal pain (principal) | CPT/HCPCS: 74177 ==

== ENCOUNTER 2025-04-23 18:30 | Emergency (ER) | payer MEDICAID, SELFPAY ==
--- NOTE | 2025-04-23 | ECG_ITS ---
Test Reason : chest pain Blood Pressure : */* mmHG Vent. Rate : 63 BPM Atrial Rate : 63 BPM P-R Int : 160 ms QRS Dur : 74 ms QT Int : 420 ms P-R-T Axes : 67 -1 45 degrees QTcB Int : 429 ms Normal sinus rhythm Normal ECG When compared with ECG of 13-Apr-2025 15:43, Nonspecific T wave abnormality no longer evident in Anterior leads Referred By: Generic ED Physician Electronically Signed By: Robert Cruz
--- NOTE | ~2025-04-23 | CT_ITS ---
CLINICAL HISTORY: epigastric pain CT abdomen and pelvis with contrast Comparison: CT/REG/SR - CT ABDOMEN PELVIS W IV CON - 04/13/25 22:17 EDT Findings: No acute finding in the lung bases. Large volume of stool throughout the colon. No small bowel obstruction. No findings of appendicitis or diverticulitis. Normal gallbladder, bile ducts, liver, spleen, pancreas, and adrenal glands. Unremarkable kidneys, ureters, and urinary bladder. No free fluid or free air within the abdomen or pelvis. No abdominal aortic aneurysm or dissection. Bones intact. IMPRESSION: Large volume of stool in the colon suggestive of constipation. This document has been electronically signed by: Darrell Harrington MD on 04/24/2025 01:33:08
--- NOTE | ~2025-04-23 | CT_ITS ---
CLINICAL HISTORY: pe rule out CT angiography chest with contrast. 3D Postprocessing. Comparison: CT - CT ANGIO CHEST PE PROTOCOL - 04/23/25 23:59 EDT Findings: Normal heart size. No pericardial effusion. Normal caliber thoracic aorta. No findings of aortic dissection. No threshold enlarged thoracic lymph node by CT size criteria. Normal diameter main pulmonary trunk. No pulmonary artery filling defect. Lungs and pleural spaces clear. No acute finding in the partially visualized upper abdomen. No acute or suspicious bone finding. IMPRESSION: 1. No pulmonary embolism or other acute finding in the chest. This document has been electronically signed by: Darrell Harrington MD on 04/24/2025 01:34:23
[2025-04-23 18:37] VITALS: BP 100/78; PULSE 68; O2SAT 99
[2025-04-23 18:38] VITALS: BP 108/48; PULSE 61; RESP 18; TEMP 37; O2SAT 98; BMI 27.4
[2025-04-23 19:17] LABS: MANUAL DIFF FLAG NO
[2025-04-23 19:20] LABS: Hematocrit 37.0 % (37.0-47.0); Hemoglobin 12.7 g/dl (12.0-16.0); Imm Gran Abs Auto 0.07 X10*3/uL (0.00-0.03); Imm Gran Pct Auto 0.6 % (0.0-0.4); Lymphocytes Absolute Auto 1.0 X10*3/uL (1.2-4.9); Mean Corpuscular HGB Conc 34.3 g/dl (31.0-35.0); Mean Corpuscular Hemoglobin 28.7 pg (27.0-33.0); Mean Corpuscular Volume 83.7 fL (80.0-98.0); NRBC Abs Auto 0.000 X10*3/uL (0.0-0.012); NRBC Pct Auto 0.0 /100WBC (0.0-0.2); Platelet Count 256 X10*3/uL (160-400); Red Blood Count 4.42 X10*6/uL (4.20-5.50); White Blood Count 11.6 X10*3/uL (4.8-10.8)
--- OUTSIDE RECORDS SUMMARY | 2025-04-23 19:27 | XMS_ITS | Clinical Summary ---
Author Organization [facility] Address [address] [place] [address] Care Team Providers Care Rn Pacu Name Role Phone Unavailable Primary Care Provider Unavailabl e Encounters Date Type Department Care Team Description 01/25/2025 Population Health Risk Score [facility] (C3) Department [address] [place] [id number] Provider, Population Health Generic from [...]
[2025-04-23 19:31] LABS: Anion Gap 15 (12-20); Blood Urea Nitrogen 22 mg/dL (9-16); Calcium 8.8 mg/dL (8.4-10.2); Carbon Dioxide 20 mmol/L (22-29); Chloride 107 mmol/L (96-108); Creatinine Clr Calc Pharmacy 50.9; Estimated Glomerular Filt Rate 49; Potassium 4.3 mmol/L (3.3-5.1); Sodium 138 mmol/L (135-145)
[2025-04-23 19:43] LABS: Troponin-I High Sensitivity < 2.7 ng/L (<3.5-17.0)
--- NOTE | 2025-04-23 20:02 | ED.GENADULT ---
HPI - General Adult General Chief complaint: General Medical Stated complaint: intermittent Chest/abd pain Time Seen by Provider: 04/23/25 19:41 Source: patient Mode of arrival: ambulatory Limitations: no limitations History of Present Illness ED Provider: Dr. Marcum HPI narrative: 60-year-old female presented hospital today for epigastric pain. Patient states she does get reflux sensation up into her chest. Patient wakes up with sour taste in her mouth and burning sensation. Patient was recently seen here and diagnosed with colitis. Patient was sent home with ciprofloxacin and Flagyl. However she finished the antibiotic and her pain has not improved. She is complaining of some nausea. Denies any fever. Related Data Previous Rx's ?Medication ?Instructions ?Recorded morphine 15 mg immediate release 15 mg PO Q6H PRN pain #14 tabs 04/02/25 tablet omeprazole 20 mg capsule,delayed 20 mg PO DAILY 30 days #30 caps 04/02/25 release prednisone 10 mg tablet 10 mg PO DIRECTED #40 tabs 04/02/25 acetaminophen 500 mg capsule 1,000 mg (2 x 500 mg) PO Q8H PRN 04/14/25 fever or pain #14 caps ciprofloxacin HCl 500 mg tablet 500 mg PO BID #14 tabs 04/14/25 metronidazole 500 mg tablet 500 mg PO TID 7 days #21 tabs 04/14/25 morphine 15 mg immediate release 15 mg PO Q6H PRN pain #14 tabs 04/14/25 tablet ondansetron 4 mg disintegrating 4 mg PO Q6H PRN nausea and 04/14/25 tablet vomiting #10 tabs prednisone 10 mg tablet 10 mg PO DIRECTED #40 tabs 04/14/25 bisacodyl 10 mg rectal suppository 10 mg KS DAILY PRN constipation 04/24/25 (Dulcolax (bisacodyl)) #12 ea dicyclomine 20 mg tablet 20 mg PO TID #10 tabs 04/24/25 polyethylene glycol 3350 17 17 g PO BID #119 grams 04/24/25 gram/dose oral powder (Miralax) sennosides 8.6 mg capsule (senna) 8.6 mg PO DAILY 10 days #10 caps 04/24/25 sodium phosphates 19 gram-7 118 ml KS DAILY 4 days #532 mL 04/24/25 gram/118 mL enema (Fleet Enema) Allergies Allergy/AdvReac Type Severity Reaction Status Date / Time ibuprofen (IBUPROFEN) Allergy Unknown HIVES Verified 04/23/25 18:38 Penicillins (PENICILLINS) Allergy Unknown DIFFICULTY Verified 04/23/25 18:38 BREATHING Review of Systems Review of Systems: Pertinent review of systems as mentioned in HPI. All other system otherwise negative. [facility] Past Medical History [facility] Narrative: Medical history as mentioned in HPI Social History Social History Alcohol intake: never Smoked in Last 30 Days: No Use of substances other than those prescribed or required for medical reasons: Yes Substance Use Type: Marijuana Advance Directives: No Advance Directives Information Provided: No Do you have a plan to hurt others: No Plan Physical Exam ED Exam Exam: General: Appears to be in pain Head: Normacephalic, atraumatic ENT: oral mucosa moist, neck supple, no tracheal deviation Cardiovascular: regular rate, regular rhythm, no murmurs, rubbing, gallops Respiratory: CTAB, no wheeze, rales, rhonchi Gastrointestinal: Soft, non distended, epigastric tenderness on palpation Neurological: Awake and alert, no facial droop noted Skin: Warm and dry Psychiatric: Appropriate mood and thoughts Vital Signs: Vital Signs - 24 hr 04/23/25 18:38 04/23/25 20:52 04/23/25 23:48 Temperature 98.6 F 98.2 F 98.0 F Pulse Rate 61 57 58 Respiratory Rate 18 12 18 Blood Pressure 108/48 L 104/45 L 147/62 H Pulse Oximetry 98 98 98 Oxygen Delivery Method Room Air Room Air Room Air 04/24/25 01:29 Temperature 98.0 F Pulse Rate 59 Respiratory Rate 16 Blood Pressure 133/56 L Pulse Oximetry 98 Oxygen Delivery Method Room Air BMI result Body Mass Index 27.4 Medications Administered Discontinued Medications Generic Name Dose Route Start Last Admin Trade Name Freq PRN Reason Stop Dose Admin Al Hydroxide/Mg Hydroxide 30 ml 04/23/25 20:12 04/23/25 21:19 Magnesium Hydrox/Alum Hydrox 30 Ml Oral.Susp PO 04/23/25 20:13 30 ml ONCE ONE Administration Famotidine 20 mg 04/23/25 20:11 04/23/25 21:19 Famotidine 20 Mg Tablet PO 04/23/25 20:12 20 mg ONCE ONE Administration Lactated Ringer's 1,000 mls @ 999 mls/hr 04/23/25 20:15 04/23/25 23:30 Lr IV 04/23/25 21:15 Infused .Q1H1M CHARLES Infusion Iohexol 100 ml 04/24/25 00:33 04/24/25 00:35 Iohexol 350 Mg/Ml 100 Ml Infus..Btl IV 04/24/25 00:34 85 ml ONCE ONE Administration Lactulose 20 gm 04/24/25 02:07 04/24/25 02:15 Lactulose 20 Gm/30 Ml Solution PO 04/24/25 02:08 20 gm ONCE ONE Administration Lidocaine HCl 15 ml 04/23/25 20:12 04/23/25 21:19 Lidocaine Hcl Viscous 2 % 15 Ml Solution MUCOUS MEM 04/23/25 20:13 15 ml ONCE ONE Administration Magnesium Citrate 300 ml 04/24/25 01:16 04/24/25 01:27 Magnesium Citrate 300 Ml Solution PO 04/24/25 01:17 300 ml ONCE ONE Administration Morphine Sulfate 4 mg 04/23/25 20:11 04/23/25 21:36 Morphine Sulfate 10 Mg/Ml Cartridge IVPUSH 04/23/25 20:12 4 mg ONCE ONE Administration Protocol Morphine Sulfate 5 mg 04/23/25 23:32 04/23/25 23:44 Morphine Sulfate 10 Mg/Ml Cartridge IVPUSH 04/23/25 23:33 5 mg ONCE ONE Administration Protocol Ondansetron HCl 4 mg 04/23/25 20:11 04/23/25 21:35 Ondansetron Hcl 4 Mg/2 Ml Vial IVPUSH 04/23/25 20:12 4 mg ONCE ONE Administration Polyethylene Glycol 17 gm 04/24/25 02:07 04/24/25 02:15 Polyethylene Glycol 3350 17 Gm Powd.Pack PO 04/24/25 02:08 17 gm ONCE ONE Administration Polyethylene Glycol 17 gm 04/24/25 02:10 04/24/25 02:15 Polyethylene Glycol 3350 17 Gm Powd.Pack PO 04/24/25 02:11 Not Given ONCE ONE Procedures Procedure Narrative Procedure Narrative: Ultrasound guided IV 20 gauge needle placed in right forearm under real time ultrasound guidance. Flushes and draw back well. No complication Medical Decision Making Medical Decision Making MDM Narrative: This is a 60-year-old female history of Crohn's disease presented hospital today for evaluation of abdominal pain recently diagnosed with colitis. We will plan to give patient IV Pepcid IV fluid IV Zofran IV morphine. Once her nausea is controlled with the plan to challenge her with GI cocktail and Maalox. I suspect patient likely has gastritis. Her history is suspicious for gastritis. We will plan to reassess patient after medication. She does have a recent CT imaging report that shows colitis. Patient does have Crohn's disease. Her colitis may be inflammatory in nature. Patient symptoms did not improve therefore a obtain a CT imaging of the chest abdomen and pelvis. She has no signs of PE. She does have signs of severe constipation. Patient is still complaining of abdominal pain at this time. Magnesium citrate, Maalox and lactulose will be given to the patient. Patient will be signed out to oncoming provider pending resolution of abdominal pain in her bowel movement. She denies any symptoms of rectal impaction. 6:11 AM 04/24/2025 (Dr. Alka Potts, D.O.) patient feeling improved after a small bowel movement though she does admit to the continued cramping. With all of the promotility agents she has had since she has been here, I feel that she is having stomach cramping from that. No evidence of infectious process. She appears well. Discussed importance of fiber and fluid intake over the next several days. Given a course of dicyclomine to help with stomach cramping. Discussed return precautions. Discharged in stable condition. Differential Diagnosis Differential Diagnoses: The differential diagnosis associated with the presentation includes Crohn's disease, IBD, gastritis, colitis Lab Data MDM Lab Attestation statement: I reviewed the patient's lab results. 04/23/25 19:09 04/23/25 19:09 Labs: Lab Results 04/23/25 Range/Units 19:09 WBC 11.6 H (4.8-10.8) X10*3/uL RBC 4.42 (4.20-5.50) X10*6/uL Hgb 12.7 (12.0-16.0) g/dl Hct 37.0 (37.0-47.0) % MCV 83.7 (80.0-98.0) fL MCH 28.7 (27.0-33.0) pg MCHC 34.3 (31.0-35.0) g/dl RDW 15.6 (11.0-16.0) % Plt Count 256 (160-400) X10*3/uL MPV 9.8 (9.4-12.3) fL Immature Gran % (Auto) 0.6 H (0.0-0.4) % Neut % (Auto) 85.8 H (45-73) % Lymph % (Auto) 8.7 L (20-40) % [place] % (Auto) 4.8 (2-11) % Eos % (Auto) 0.0 (0-4) % Baso % (Auto) 0.1 (0-2) % Lymph # (Auto) 1.0 L (1.2-4.9) X10*3/uL [place] # (Auto) 0.6 (0.1-1.2) X10*3/uL Eos # (Auto) 0.0 (0.0-0.4) X10*3/uL Baso # (Auto) 0.0 (0.0-0.2) X10*3/uL Abs Immat Gran (auto) 0.07 H (0.00-0.03) X10*3/uL Absolute Neuts (auto) 9.9 H (2.0-8.3) x10*3/uL Absolute Nucleated RBC 0.000 (0.0-0.012) X10*3/uL Nucleated RBC % (auto) 0.0 (0.0-0.2) /100WBC Sodium 138 (135-145) mmol/L Potassium 4.3 (3.3-5.1) mmol/L Chloride 107 (96-108) mmol/L Carbon Dioxide 20 L (22-29) mmol/L Anion Gap 15 (12-20) BUN 22 H (9-16) mg/dL Creatinine 1.13 (0.5-1.4) mg/dL Estim Creat Clear Calc 50.9 Estimated GFR 49 Random Glucose 176 H (60-115) mg/dL Calcium 8.8 (8.4-10.2) mg/dL Troponin I High Sens < 2.7 (<3.5-17.0) ng/L Independent Interpretation I performed an independent interpretation of an: CT Scan Radiology Impression Discussion of test interpretation with radiology: I have reviewed the radiologist's reading. Prescription Management I considered prescription management with: Pain Medication and Other (Stool softeners, laxatives) Chronic Conditions Patient?s care impacted by: Other (Crohn's disease) Discharge Plan Discharge Clinical Impression: Constipation Qualifiers: Constipation type: unspecified constipation type Qualified Code(s): K59.00 - Constipation, unspecified Patient Disposition: Home, Self-Care Instructions: Constipation (ED) Additional Instructions: Constipation Remedy 1 Lb prunes 1 Lb pitless dates 1 Lb raisins 16 teabags Smooth Move tea brewed in 2 cups water 1 Cup brown sugar 1 Cup lemon juice Mix in a newspaper or periodical editor Put in freezer (never completely freezes) Can be used as a spread on crackers, toast, etc. (about 1-2 tablespoons per dose) You need to consume more fiber to help with your bowels. You can try the above recipe. If you start to vomit, have worsening pain despite medications or develop a fever-return to the emergency department immediately. Call 911 with any medical emergency. Prescriptions: New senna 8.6 mg capsule 8.6 mg PO DAILY 10 Days Qty: 10 0RF bisacodyl [Dulcolax (bisacodyl)] 10 mg suppository 10 mg KS DAILY PRN (Reason: constipation) Qty: 12 0RF polyethylene glycol 3350 [Miralax] 17 gram/dose powder 17 g PO BID Qty: 119 0RF Fleet Enema 19-7 gram/118 mL enema 118 ml KS DAILY 4 Days Qty: 532 0RF dicyclomine 20 mg tablet 20 mg PO TID Qty: 10 0RF No Action prednisone 10 mg tablet 10 mg PO DIRECTED Qty: 40 0RF Rx Instructions: Day 1-7, 4pills. Day 8-9, 3 pills. Day 10-11, 2 pills. Day 12-13, 1 pill morphine 15 mg tablet 15 mg PO Q6H PRN (Reason: pain) Qty: 14 0RF Rx Instructions: Partial Fill upon patient request. omeprazole 20 mg capsule,delayed release(DR/EC) 20 mg PO DAILY 30 Days Qty: 30 0RF ciprofloxacin HCl 500 mg tablet 500 mg PO BID Qty: 14 0RF prednisone 10 mg tablet 10 mg PO DIRECTED Qty: 40 0RF Rx Instructions: Take 4 tablets daily for 4 days, then 3 tablets daily for 4 days, then 2 tablets daily for 4 days, then 1 tablet daily for 4 days. metronidazole 500 mg tablet 500 mg PO TID 7 Days Qty: 21 0RF morphine 15 mg tablet 15 mg PO Q6H PRN (Reason: pain) Qty: 14 0RF Rx Instructions: Partial Fill upon patient request. ondansetron 4 mg tablet,disintegrating 4 mg PO Q6H PRN (Reason: nausea and vomiting) Qty: 10 0RF acetaminophen 500 mg capsule 1,000 mg PO Q8H PRN (Reason: fever or pain) Qty: 14 0RF Print Language: Swedish
[2025-04-23 20:52] VITALS: BP 104/45; PULSE 57; RESP 12; TEMP 36.8; O2SAT 98
[2025-04-23] MEDS: Lidocaine HCl Viscous 2 % 15 ML SOLUTION MUCOUS MEM (21:19)
[2025-04-23] MEDS: Magnesium Hydrox/Alum Hydrox 30 ML ORAL.SUSP PO (21:19)
[2025-04-23] MEDS: Lactated Ringers 1,000 ML 999 ML IV (21:37)
[2025-04-23 23:48] VITALS: BP 147/62; PULSE 58; RESP 18; TEMP 36.7; O2SAT 98
[2025-04-24] MEDS: iohexoL 350 MG/ML 100 ML INFUS..BTL IV (00:35)
[2025-04-24 01:29] VITALS: BP 133/56; PULSE 59; RESP 16; TEMP 36.7; O2SAT 98
[2025-04-24 06:18] VITALS: BP 93/49; PULSE 52; TEMP 36.6
[2025-04-24 06:42] VITALS: BP 93/49; PULSE 52; RESP 18; TEMP 36.6
== END 2025-04-24 06:49 | disposition home or self-care (01) ==
PROVIDERS: Student in an Organized Health Care Education/Training Program; Emergency Provider Emergency Medicine
DX: K59.00 Constipation, unspecified (principal); K50.90 Crohn's disease, unspecified, without complications; Z79.899 Other long term (current) drug therapy
CPT/HCPCS: 36415; 71275; 74177; 80048; 84484; 85025; 93005; 96361; 96374; 96375; 96376; 99285; J2270; J2405; J7120; Q9967

== ENCOUNTER → 2025-04-23 18:51 | Outpatient (BNV) | payer MEDICAID, SELFPAY | PROVIDERS: Emergency Provider Emergency Medicine; Visit Provider Internal Medicine Cardiovascular Disease | DX: R07.9 Chest pain, unspecified (principal) | CPT/HCPCS: 93010 ==

== ENCOUNTER → 2025-04-24 00:05 | Outpatient (BNV) | payer MEDICAID, SELFPAY | PROVIDERS: Emergency Provider Student in an Organized Health Care Education/Training Program; Visit Provider Radiology Diagnostic Radiology | DX: R10.13 Epigastric pain (principal); Z03.89 Encounter for observation for other suspected diseases and conditions ruled out | CPT/HCPCS: 71275; 74177 ==

== ENCOUNTER 2025-05-10 12:07 | Emergency (ER) | payer MEDICAID, SELFPAY ==
--- NOTE | ~2025-05-10 | XR_ITS ---
EXAMINATION: XR RIBS, RIGHT CLINICAL INFORMATION: lateral pain COMPARISON: No prior radiograph. Correlation made with CT angiography chest 04/24/2025. TECHNIQUE: PA view of the chest, and 3 views of the right ribs were obtained. FINDINGS: Lungs demonstrate linear opacity in the right base suspicious for discoid atelectasis. The left lung is grossly clear with trace atelectasis in the left base. Subtle blunting of the right costophrenic sulcus, suspicious for a tiny effusion. The cardiomediastinal silhouette and pulmonary vasculature are normal. Osseous structures are unremarkable. Ribs are intact. No fractures or rib lesions are identified. XR/XR ribs RT min 3V w CXR1V IMPRESSION: 1. Linear opacity in the right lower lung, suspicious for linear/discoid atelectasis. Pneumonia is not excluded. Subtle blunting of the right costophrenic sulcus, suspicious for a tiny effusion. 2. No definite rib fracture or focal rib abnormality. Electronically signed by: Tariq Morgan MD 05/10/2025 01:11 PM [facility]
[2025-05-10 12:21] VITALS: BP 110/56; PULSE 77; RESP 20; TEMP 36.6; O2SAT 97; BMI 24.6
--- NOTE | 2025-05-10 12:21 | ED.GENADULT ---
HPI - General Adult General Chief complaint: Back Pain/Injury Stated complaint: R side pain, muscle spasms Time Seen by Provider: 05/10/25 13:34 Source: patient, RN notes reviewed and old records reviewed Mode of arrival: ambulatory Limitations: no limitations History of Present Illness ED Provider: Darren HPI narrative: Patient is a 60-year old female presenting with complaint of right upper back pain and spasming for the past 2 weeks. Worse with cough, movement and palpation. Denies fevers. Took ASA with little relief. Denies any chest pain or palpitations. MD complaint: back pain Related Data Previous Rx's ?Medication ?Instructions ?Recorded morphine 15 mg immediate release 15 mg PO Q6H PRN pain #14 tabs 04/02/25 tablet omeprazole 20 mg capsule,delayed 20 mg PO DAILY 30 days #30 caps 04/02/25 release prednisone 10 mg tablet 10 mg PO DIRECTED #40 tabs 04/02/25 acetaminophen 500 mg capsule 1,000 mg (2 x 500 mg) PO Q8H PRN 04/14/25 fever or pain #14 caps ciprofloxacin HCl 500 mg tablet 500 mg PO BID #14 tabs 04/14/25 metronidazole 500 mg tablet 500 mg PO TID 7 days #21 tabs 04/14/25 morphine 15 mg immediate release 15 mg PO Q6H PRN pain #14 tabs 04/14/25 tablet ondansetron 4 mg disintegrating 4 mg PO Q6H PRN nausea and 04/14/25 tablet vomiting #10 tabs prednisone 10 mg tablet 10 mg PO DIRECTED #40 tabs 04/14/25 bisacodyl 10 mg rectal suppository 10 mg NC DAILY PRN constipation 04/24/25 (Dulcolax (bisacodyl)) #12 ea dicyclomine 20 mg tablet 20 mg PO TID #10 tabs 04/24/25 polyethylene glycol 3350 17 17 g PO BID #119 grams 04/24/25 gram/dose oral powder (Miralax) sennosides 8.6 mg capsule (senna) 8.6 mg PO DAILY 10 days #10 caps 04/24/25 sodium phosphates 19 gram-7 118 ml NC DAILY 4 days #532 mL 04/24/25 gram/118 mL enema (Fleet Enema) cyclobenzaprine 10 mg tablet 10 mg PO TID PRN muscle spasm #10 05/10/25 tabs doxycycline hyclate 100 mg tablet 100 mg PO BID #10 tabs 05/10/25 Allergies Allergy/AdvReac Type Severity Reaction Status Date / Time ibuprofen (IBUPROFEN) Allergy Unknown HIVES Verified 05/10/25 12:24 Penicillins (PENICILLINS) Allergy Unknown DIFFICULTY Verified 05/10/25 12:24 BREATHING Review of Systems Review of Systems: As per HPI Yes all other systems are reviewed and are negative Constitutional: Constitutional: Reports as per HPI [facility] Social History Social History Alcohol intake: never Substance Use Type: Marijuana Physical Exam ED Vital Signs: Vital Signs - 24 hr 05/10/25 12:21 Temperature 97.9 F Pulse Rate 77 Respiratory Rate 20 Blood Pressure 110/56 L Pulse Oximetry 97 Oxygen Delivery Method Room Air BMI result Body Mass Index 24.6 Vital signs have been reviewed and appear to be correct. Blood pressure normal. Heart rate normal. Respiratory rate normal. Temperature normal. Oxygen saturation normal. Const General: cooperative, healthy appearing and no acute distress Orientation/consciousness: oriented to person, oriented to place, oriented to time and patient oriented x3 Limitations: no limitations HENKS Head: Yes normocephalic and Yes atraumatic Ears: external ears normal General nose exam: Normal external nose present Face and sinus: Yes face symmetric Mouth: oropharynx normal and moist mucous membranes Throat: Yes uvula midline Eyes Pupils: Equal, round and reactive pupils present Neck Neck: Yes normal visual inspection and Yes supple Resp Effort & Inspection: normal respiratory effort and able to speak in complete sentences Auscultation: clear to auscultation bilaterally Cardio Rate: regular rate Rhythm: regular rhythm Heart sounds: S1 normal heart sound present and S2 normal heart sound present GI Palpation (GI): Soft to palpation and nontender Auscultation: normoactive bowel sounds General: Yes no CVA tenderness Back/Spine/Pelvis Back: no CVA tenderness Thoracic/Lumbar Spine: paraspinal muscle tenderness on the right in the mid thoracic Skin General skin exam: elasticity normal and turgor normal Neuro General: oriented to person, oriented to place, oriented to time, patient oriented x3, moves all extremities, no focal motor deficits and CN's II-XI intact bilaterally Cranial nerves: Yes Equal, round and reactive pupils present Cognition (Neuro): normal cognition Extrem General: Yes full ROM, Yes no pedal edema and Yes no calf tenderness Psych Mental Status: mental status grossly normal Affect: normal affect Thought process: Normal thought process present Course Course Course Narrative: This is a rapid medical exam performed by Nan Banks NP: Additional HPI, ROS, PE not included below will be deferred to primary provider. Patient is a 60-year old female presenting with complaint of right upper back pain and spasming for the past 2 weeks. Worse with cough, movement and palpation. Denies fevers. Took ASA with little relief. Plan: xray Medical Decision Making Medical Decision Making [facility] Narrative: Patient is a 60-year old female presenting with complaint of right upper back pain and spasming for the past 2 weeks. On exam patient is awake, A+Ox3, VS WNL, afebrile, normal neurological exam without focal deficits, physical exam findings as above. Given reported symptoms and physical exam findings, initial differential includes but is not limited to muscle strain, rib contusion or fracture, bronchitis or pneumonia. X-ray right ribs and chest notable for right lower lobe opacity. My interpretation is in agreement with the radiologist's interpretation. Will treat with course of doxycycline. Will send prescription for flexeril as well for spasms. Advised follow up with PCP for repeat CXR to ensure resolution of pna. Return precautions discussed. Patient verbalized understanding of and agreement with plan. Differential Diagnosis Differential Diagnoses: The differential diagnosis associated with the presentation includes as per [facility] Admission/Observation Consideration of admission/observation: Escalation of care including admission/observation considered Patient would have been admitted to the hospital and transferred to appropriate facility had their clinical presentation warranted hospital admission. Independent Interpretation I performed an independent interpretation of an: Plain X-Ray Interpretation: Right lower lobe opacity on chest x-ray. Radiology Impression Discussion of test interpretation with radiology: I have reviewed the radiologist's reading. Radiologist Impression: XR/XR ribs RT min 3V w CXR1V IMPRESSION: 1. Linear opacity in the right lower lung, suspicious for linear/discoid atelectasis. Pneumonia is not excluded. Subtle blunting of the right costophrenic sulcus, suspicious for a tiny effusion. 2. No definite rib fracture or focal rib abnormality. External Record Review External record reviewed: Inpatient record, Office record and Outpatient record Prescription Management I considered prescription management with: Antibiotic and Other Discharge Plan Discharge Clinical Impression: Right lower lobe pneumonia Patient Disposition: Home, Self-Care Instructions: Community Acquired Pneumonia (DC) Additional Instructions: You were evaluated in the emergency department today for cough and shortness of breath. Your chest x-ray shows evidence of pneumonia. You are being treated with antibiotics, please complete the full course as prescribed. You have also been prescribed cyclobenzaprine which is a muscle relaxer. This medication can cause drowsiness, do not take in combination with alcohol. Please call your primary care provider within the next 2-3 days to schedule a follow-up appointment. You will need a repeat chest x-ray to confirm resolution of your pneumonia. Return to the emergency department if you develop worsening shortness of breath, chest pain, palpitations, fever 100.4? F or greater, or any other concerning symptoms. Prescriptions: New doxycycline hyclate 100 mg tablet 100 mg PO BID Qty: 10 0RF cyclobenzaprine 10 mg tablet 10 mg PO TID PRN (Reason: muscle spasm) Qty: 10 0RF No Action senna 8.6 mg capsule 8.6 mg PO DAILY 10 Days Qty: 10 0RF bisacodyl [Dulcolax (bisacodyl)] 10 mg suppository 10 mg NC DAILY PRN (Reason: constipation) Qty: 12 0RF polyethylene glycol 3350 [Miralax] 17 gram/dose powder 17 g PO BID Qty: 119 0RF Fleet Enema 19-7 gram/118 mL enema 118 ml NC DAILY 4 Days Qty: 532 0RF dicyclomine 20 mg tablet 20 mg PO TID Qty: 10 0RF prednisone 10 mg tablet 10 mg PO DIRECTED Qty: 40 0RF Rx Instructions: Day 1-7, 4pills. Day 8-9, 3 pills. Day 10-11, 2 pills. Day 12-13, 1 pill morphine 15 mg tablet 15 mg PO Q6H PRN (Reason: pain) Qty: 14 0RF Rx Instructions: Partial Fill upon patient request. omeprazole 20 mg capsule,delayed release(DR/EC) 20 mg PO DAILY 30 Days Qty: 30 0RF ciprofloxacin HCl 500 mg tablet 500 mg PO BID Qty: 14 0RF prednisone 10 mg tablet 10 mg PO DIRECTED Qty: 40 0RF Rx Instructions: Take 4 tablets daily for 4 days, then 3 tablets daily for 4 days, then 2 tablets daily for 4 days, then 1 tablet daily for 4 days. metronidazole 500 mg tablet 500 mg PO TID 7 Days Qty: 21 0RF morphine 15 mg tablet 15 mg PO Q6H PRN (Reason: pain) Qty: 14 0RF Rx Instructions: Partial Fill upon patient request. ondansetron 4 mg tablet,disintegrating 4 mg PO Q6H PRN (Reason: nausea and vomiting) Qty: 10 0RF acetaminophen 500 mg capsule 1,000 mg PO Q8H PRN (Reason: fever or pain) Qty: 14 0RF Print Language: Japanese
[2025-05-10 13:47] VITALS: BP 110/56; PULSE 77; RESP 20; TEMP 36.6; O2SAT 97
--- OUTSIDE RECORDS SUMMARY | 2025-05-10 16:48 | XMS_ITS | Clinical Summary ---
Author Organization [address] Address [address] [place] [phone] Phone Care Team Providers Care Sock Knitter Name Role Phone Unavailable Primary Care Provider [...] 2017 Zoster Vaccines (1 of 2) 2017 Depression Screening 07/07/2024 COVID-19 Vaccine ( - 2023-2 5 season) 2025 Influenza Vaccine (#1) 2025 RSV Immunization Adult Patie nts (1 - 1-dose 75+ series) 2042 HIB [...]
--- OUTSIDE RECORDS SUMMARY | 2025-05-10 16:48 | XMS_ITS | Clinical Summary ---
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
== END 2025-05-10 13:48 | disposition home or self-care (01) ==
PROVIDERS: Emergency Provider Emergency Medicine
DX: J18.9 Pneumonia, unspecified organism (principal); Z88.0 Allergy status to penicillin; Z88.6 Allergy status to analgesic agent
CPT/HCPCS: 71101; 99282; 99283

== ENCOUNTER → 2025-05-10 12:25 | Outpatient (BNV) | payer MEDICAID, SELFPAY | PROVIDERS: Emergency Provider Emergency Medicine; Visit Provider Radiology Diagnostic Radiology | DX: R91.8 Other nonspecific abnormal finding of lung field (principal) | CPT/HCPCS: 71101 ==